=== PATIENT | female | born 1960 | race Caucasian/White ===

== ENCOUNTER 2018-01-29 10:42 | Emergency (ER) | payer BC ==
--- NOTE | 2018-01-29 11:20 | EDM.PDOC ---
ED HPI GENERAL MEDICAL PROBLEM - General Chief Complaint: Cardiovascular Problem Stated Complaint: HEART ISSUES Time Seen by Provider: 01/29/18 11:10 Source of Information: Reports: Patient History Limitations: Reports: No Limitations - History of Present Illness INITIAL COMMENTS - FREE TEXT/NARRATIVE: 57-year-old female presents to the ED with palpitations. She states she awoke in the night with palpitations and then she rolled onto her left side was able to fall back asleep. Initial presentation was about 5:00 this morning. He has a history of intermittent palpitations but really not that she's noticed for the last 12 or 14 years. She is known to have a atrial septal defect I believe exposed by echocardiogram every year or 2. She is followed by Dr. Tidwell at [facility] in [place]. Has a loud carotid bruit on the left side that is been investigated thoroughly as well. 2 reveals multiple PACs which appeared to be coming from the same site. ECG reveals evidence of biatrial hypertrophy but particularly left atrial hypertrophy pattern. It is otherwise sinus and shows no signs of ischemia. Patient is otherwise asymptomatic with no chest pain no dizziness or lightheadedness no shortness of breath. She drinks alcohol rarely none recently. No extra caffeine or nicotine at all. Onset: Today Onset Date: 01/29/18 Onset Time: 05:00 Duration: Hour(s): Location: Reports: Chest (Palpitations) Quality: Reports: Other Severity: Moderate (Awareness of frequent palpitations in her chest.) Improves with: Reports: None Worsens with: Reports: None Context: Reports: Other (Awoke with palpitations during the night.). Denies: Activity, Exercise, Lifting, Sick Contact, Trauma Associated Symptoms: Reports: No Other Symptoms. 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) (None.) - Related Data Allergies Allergy/AdvReac Type Severity Reaction Status Date / Time droperidol [From Inapsine] Allergy Other Verified 01/29/18 10:54 tetracycline Allergy Hives Verified 01/29/18 10:54 Home Meds: Home Meds Aspirin 81 mg PO DAILY 01/29/18 [History] Atenolol 25 mg PO DAILY #30 tablet 01/29/18 [Rx] Calcium Carbonate [Tums Extra Strength] 1,500 mg PO DAILY 01/29/18 [History] Cholecalciferol (Vitamin D3) [Vitamin D3] 2,000 unit PO DAILY 01/29/18 [History] LORazepam [Ativan] 1 mg PO BEDTIME PRN 01/29/18 [History] Levothyroxine Sodium [Levo-T] 25 mcg PO DAILY 01/29/18 [History] Potassium Chloride 20 meq PO DAILY #30 tablet.er 01/29/18 [Rx] Past Medical History HEENT History: Reports: Impaired Vision, Other (See Below) Other HEENT History: 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 heart murmur. 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 Denies: Chest Pain (Frequent palpitations this morning since getting up. First appreciated them during the night when she awoke about 0500 hrs. with him.), Claudication, Edema, Lightheadedness, Orthopnea (Blood pressure is currently elevated but she is not known to be hypertensive), PND Endocrine: Reports: No Symptoms GI/Abdominal: Reports: No Symptoms : Reports: No Symptoms Musculoskeletal: Reports: No Symptoms Skin: Reports: No Symptoms Neurological: Reports: No Symptoms Psychiatric: Reports: No Symptoms Hematologic/Lymphatic: Reports: No Symptoms Immunologic: Reports: No Symptoms ED EXAM, GENERAL - Physical Exam Exam: See Below Exam Limited By: No Limitations General Appearance: Alert, WD/WN, No Apparent Distress Eye Exam: Bilateral Eye: Normal Inspection Neck: Normal Inspection, Supple, Non-Tender, Full Range of Motion, Carotid Bruit (Loud carotid bruit bruit appreciated throughout the entire left carotid bruit artery. She's had this for about 10 years and is been thoroughly investigated with no obstruction evident. Is felt to be referred from a hole in her heart.). No: Lymphadenopathy (L), Lymphadenopathy (R) Respiratory/Chest: No Respiratory Distress, Lungs Clear, Normal Breath Sounds, No Accessory Muscle Use, Chest Non-Tender Cardiovascular: Normal Peripheral Pulses, Regular Rate, Rhythm, No Edema, No Gallop, Systolic Murmur (Very faint less than 1/6 systolic ejection murmur at heard best at the left lateral sternal border.), Irregularly Irregular ( Frequent PACs on the monitor.) Peripheral Pulses: 3+: Carotid (L), Carotid (R) GI/Abdominal: Normal Bowel Sounds, Soft, Non-Tender, No Organomegaly, No Abnormal Bruit, No Mass, Pelvis Stable Extremities: Normal Inspection, Normal Range of Motion, Non-Tender, No Pedal Edema Neurological: Alert, Oriented, CN II-XII Intact, Normal Cognition Psychiatric: Normal Affect, Normal Mood Skin Exam: Warm, Dry, Intact, Normal Color, No Rash EKG INTERPRETATION EKG Date: 01/29/18 Time: 10:47 Rhythm: NSR Rate (Beats/Min): 80 [place]: Normal P-Wave: Enlarged (Question biatrial hypertrophy definite left atrial hypertrophy pattern) QRS: Other (Initial poor R-wave progression with early R-wave transition in V3. Consider septal hypertrophy pattern.) ST-T: Normal QT: Normal EKG Interpretation Comments: Abnormal ECG Course - Vital Signs Last Recorded V/S: Last Vital Signs Temp 37.1 C 01/29/18 11:00 Pulse 78 01/29/18 11:00 Resp 12 01/29/18 11:00 BP 132/110 H 01/29/18 11:00 Pulse Ox 100 01/29/18 11:00 - Orders/Labs/Meds Orders: Active Orders 24 hr Category Date Time Status Chest 1V Frontal [CR] Stat Exams 01/29/18 11:18 Taken Labs: Laboratory Tests 01/29/18 01/29/18 01/29/18 Range/Units 10:50 10:50 10:50 WBC 8.74 (3.98-10.04) K/mm3 RBC 5.64 H (3.98-5.22) M/mm3 Hgb 16.0 H (11.2-15.7) gm/L Hct 48.2 H (34.1-44.9) % MCV 85.5 (79.4-94.8) fl MCH 28.4 (25.6-32.2) pg MCHC 33.2 (32.2-35.5) g/dl RDW Std Deviation 41.4 (36.4-46.3) fL Plt Count 344 (182-369) K/mm3 MPV 11.5 (9.4-12.3) fl Neutrophils % (Manual) 58 (40-60) % Band Neutrophils % 1 (0-10) % Lymphocytes % (Manual) 33 (20-40) % Atypical Lymphs % 0 % Monocytes % (Manual) 7 (2-10) % Eosinophils % (Manual) 0 L (0.7-5.8) % Basophils % (Manual) 1 (0.1-1.2) Platelet Estimate Adequate RBC Morph Comment Normal Sodium 137 (136-145) mEq/L Potassium 3.1 L (3.5-5.1) mEq/L Chloride 103 (98-107) mEq/L Carbon Dioxide 25 (21-32) mEq/L Anion Gap 12.1 (5-15) BUN 8 (7-18) mg/dL Creatinine 1.0 (0.55-1.02) mg/dL Est Cr Clr Drug Dosing 61.86 mL/min Estimated GFR (MDRD) 57 (>60) mL/min BUN/Creatinine Ratio 8.0 L (14-18) Glucose 100 (74-106) mg/dL Calcium 9.5 (8.5-10.1) mg/dL Magnesium 2.1 (1.8-2.4) mg/dl Total Bilirubin 0.6 (0.2-1.0) mg/dL AST 23 (15-37) U/L ALT 19 (14-59) U/L Alkaline Phosphatase 84 (46-116) U/L CK-MB (CK-2) < 0.5 (0-3.6) ng/ml Troponin I < 0.017 (0.00-0.056) ng/mL NT-Pro-B Natriuret Pep 163 H (0-125) pg/mL Total Protein 8.2 (6.4-8.2) g/dl Albumin 4.4 (3.4-5.0) g/dl Globulin 3.8 gm/dL Albumin/Globulin Ratio 1.2 (1-2) - Radiology Interpretation Free Text/Narrative:: 57-year-old female presents to the ED with palpitations. Initially awoke from sleep around 0500 hrs. this morning. She rolled over onto her opposite side and she was able to fall back asleep for a period of time. However since awakening she is well aware of the palpitations as they seem to becoming almost every other beat. 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 Arrhythmias in the past time was about 12 or 13 years ago. 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 She is being followed by echocardiogram and sand polisher Dr. Zaida Tidwell in [place] almost on a yearly basis for echocardiogram. A chronic left-sided carotid bruit which we identified on examination today. The monitor shows frequent PACs. Was no signs of ischemia. She appears to have by atrial hypertrophy. There is also some suggestion she may have some septal hypertrophy. Plan routine labs including serum magnesium to be done and one view chest x-ray. - Re-Assessments/Exams Free Text/Narrative Re-Assessment/Exam: 01/29/18 11:56 chest x-ray done portably is completely normal. Cardiac silhouette is normal in size and shape. There are no signs of congestive heart failure or lung infiltrates. 01/29/18 12:46 Labs are back. Normal white count at 8.74 with 58% neutrophils and 1% band reported. Hemoglobin is 16.0 with hematocrit of 48.2. Sodium is 137 with potassium slightly low at 3.1. Chloride is 103 with a bicarbonate of 25. Anion gap is 12.1. BUNs 8 with a creatinine of 1.0. Glucose is 100. Calcium 9.5. Magnesium is normal at 2.1. Liver function is normal. CK-MB was less than 0.5 troponin I was less than 0.017. BNP is 163. Minimally elevated. 01/29/18 13:10 Labs have returned and identified the low serum potassium level. This may be due to inadequate dietary intake. She is not on any diuretics. Plan will be to place her on Slow-K 20 mEq once daily for potassium supplementation. I will write a prescription for atenolol 25 mg strength that she can fill if she is still having symptomatic PACs over the next 48-72 hours. If they go away on their own and she can withhold starting this medication. She will plan to follow-up with her sand polisher Dr. Tidwell in [place] for an echocardiogram in the near future Departure - Departure Time of Disposition: 13:02 Disposition: Home, Self-Care 01 Condition: Fair Clinical Impression: Premature atrial contractions, Hypokalemia, Palpitations Prescriptions: Atenolol 25 mg PO DAILY #30 tablet Potassium Chloride 20 meq PO DAILY #30 tablet.er Instructions: Potassium Content of Foods Referrals: PCP,None [Primary Care Provider] - Forms: ED Department Discharge Additional Instructions: Evaluation the emergency room this morning in regards to development of significant palpitations overnight. Monitor revealed these to be premature atrial contractions sometimes coming in a trigeminal fashion early or every third beat. These are considered benign as of heart related illness. However they can sometimes come very close together and make us feel dizzy , or shortness of breath or some chest discomfort. Lab lab findings identified mild low serum potassium value at 3.1. This may or may not be in reason for the premature atrial contractions to be present. Suggest use of a potassium supplement such as Slow-K 20 mg once daily to return potassium levels to normal. I did write a prescription for atenolol 25 mg strength that can be taken one tablet every day if that P ACEs continue to be problematic over the next 48-72 hours. They may well just go away on their own. As we discussed you are due for an echocardiogram with Dr. Tidwell and I would encourage you to make that appointment in the near future. - My Orders Last 24 Hours: My Active Orders 01/29/18 11:18 Chest 1V Frontal [CR] Stat - Assessment/Plan Last 24 Hours: My Active Orders 01/29/18 11:18 Chest 1V Frontal [CR] Stat
--- NOTE | 2018-01-29 13:41 | CR ---
Chest: Portable view of the chest was obtained. Comparison: No previous chest x-ray. Heart size is normal. Tortuous thoracic aorta is seen. Scoliosis is noted within the spine. Lungs are clear and no acute parenchymal change. Impression: 1. Nothing acute is seen on portable chest x-ray. Diagnostic code #2
== END 2018-01-29 13:30 | disposition home or self-care (01) ==
LOC: JD.ED 10:42
DX: I49.1 Atrial premature depolarization (principal); E87.6 Hypokalemia; Z87.891 Personal history of nicotine dependence; E03.9 Hypothyroidism, unspecified; Z79.82 Long term (current) use of aspirin; Z79.899 Other long term (current) drug therapy; Z88.8 Allergy status to other drugs, medicaments and biological substances; Z88.1 Allergy status to other antibiotic agents
CPT/HCPCS: 36415; 71045; 71045-26; 80053; 82553; 83735; 83880; 84484; 85007; 85027; 93010; 99285-25